=== PATIENT | female | born 1990 | race Caucasian/White ===

== ENCOUNTER → 2017-05-09 | Outpatient (CLI) | payer OTHER ==
[2017-05-09 15:43] LABS: CH 33.7; CHCM 34.1; HDW 2.58; HGB 11.8 gm/dL (11.4-16.0); MCH 33.5 pg (25.0-35.0); MCHC 33.6 g/dL (31.0-37.0); MCV 99.6 fL (80.0-100.0); Mean Platelet Volume 8.1; RBC 3.51 m/uL (3.80-5.40); RDW 13.1 % (11.5-15.5); WBC 10.8 k/uL (3.8-10.6)
== END | disposition home or self-care (01) ==
LOC: LABWHC1 13:56
PROVIDERS: ATTEND Obstetrics & Gynecology
DX: Z34.82 Encounter for supervision of other normal pregnancy, second trimester (principal); Z3A.00 Weeks of gestation of pregnancy not specified
CPT/HCPCS: 36415; 82950; 85027

== ENCOUNTER → 2017-05-19 | Outpatient (CLI) | payer OTHER ==
[2017-05-19 11:33] LABS: Glucose 3 Hour, Gest 81 mg/dL
== END | disposition home or self-care (01) ==
LOC: LABWHC1 07:28
PROVIDERS: ATTEND Obstetrics & Gynecology
DX: O99.810 Abnormal glucose complicating pregnancy (principal); Z3A.00 Weeks of gestation of pregnancy not specified
CPT/HCPCS: 36415; 82951; 82952

== ENCOUNTER 2017-07-10 10:20 | Outpatient (CLI) | payer OTHER ==
[2017-07-10 10:45] VITALS: RESP 18; TEMP 98
--- NOTE | 2017-07-10 12:39 | US ---
EXAMINATION TYPE: US OB limited DATE OF EXAM: 07/10/2017 COMPARISON: NONE CLINICAL HISTORY: Leaking fluid since last night, possible rupture of membranes. EXAM PERFORMED: Transabdominal (TA) GESTATIONAL AGE / DATING Physician Established: (34 weeks/5 days) EDC: 08/16/2017 No growth performed on today?s study per ordering physician SURVEY HENRRY: 11.3 cm Normal Ultrasound evidence of premature rupture of membranes? No PRESENTATION: Vertex HEART RATE: 116 bpm RHYTHM: Normal Results given to L&D at time of exam IMPRESSION: Exam limited. Normal amniotic fluid index. Viable intrauterine .
[2017-07-10] MEDS ORDERED: AMPICILLIN 2,000 MG in SODIUM CHLORIDE 0.9% 100 ML IVPB STA (13:39)
[2017-07-10] MEDS ORDERED: LACTATED RINGERS 1,000 ML IV SCH (13:45)
[2017-07-10 13:55] VITALS: BP 111/69; PULSE 92
[2017-07-10] MEDS ORDERED: BETAMET ACET-BETAMETH SOD PHOS 6 MG/ML VIAL IM SCH (14:00)
--- NOTE | 2017-07-10 14:21 | P.TRANS ---
Providers Expected date of discharge: 07/10/17 Attending physician: Zana Copeland Primary care physician: [facility] Hospital Course: Patient is 27-year-old at 34 and 5 weeks gestation arrived with spontaneous rupture membranes. Patient notes that last night at between 6 and 7 she started having leaking of clear fluid that was continuous. It does not have any relation to her urinating or any other findings. She says that she looked up online and decides and she thought she weighed morning she would wait until morning. She called her office visit earlier this morning and she was advised to come to labor and delivery 1 labor and delivery initially the amnio sure was negative however she continued to have clear leaking of fluid and a speculum exam was done showing pooling in the vagina and therefore repeat amateur was done and this one was positive. She is therefore being transferred to [facility] under the care of Dr. barr maternal medicine specialist. This is due to her maturity and this hospital inability to care for baby before 35 weeks. Risks of transfer discussed with she and her the remaining issue however is that we are unable take care of the baby and therefore a transfer is unfortunately indicated in her case. She has received a dose of Celestone as well as a dose of antibiotics. Past medical history otherwise is unremarkable, past surgical history none, ALLERGIES none, social history unremarkable. Family history is significant for a father with A. fib and a mother with an aortic aneurysm. On physical exam vital signs are stable and afebrile. Heart regular, lungs clear, extremities without pain. Assessment intrauterine at 34 and 5. Plan transfer of care and will allow maternal- medicine to decide future care. Patient Condition at Discharge: Fair Plan - Transfer Summary Transfer Medications: Active Medications Generic Name Dose Route Start Last Admin Trade Name Freq PRN Reason Stop Dose Admin Betamethasone Acet/Betameth SodPhos 12 mg 07/10/17 14:00 Celestone Soluspan IM 07/11/17 14:01 Q24H RUTH Ampicillin Sodium 2,000 mg/ 100 mls @ 200 mls/hr 07/10/17 13:39 Sodium Chloride IVPB 07/10/17 14:08 ONCE STA Lactated Ringer's 1,000 mls @ 20 mls/hr 07/10/17 13:45 07/10/17 13:50 Lactated Ringers IV 20 mls/hr .Q24H RUTH Administration
--- NOTE | 2017-07-11 08:44 | P.MSEPDOC ---
Presenting Problems - Arrival Data Date of Arrival on Unit: 07/10/17 Time of Arrival on Unit: 10:25 Mode of Transport: Portable - Complaint OB-Reason for Admission/Chief Complaint: Rule Out SROM, Pain Comment: leaking clear fluid since 07/09 at 1800, clear, denies intercourse. "Sharp,stabbing" abdominal pain. rating pain 3/10 currently. Medical History - Information : 1 Para: 0 Term: 0 : 0 Abortions: Spontaneous or Elective: 0 Number of Living Children: 0 - Gestational Age Gestational Age by KAMILAH (wks/days): 34 Weeks and 5 Days Review of Systems - Review of Systems Constitutional: No problems Breast: No problems ENT: No problems Cardiovascular: No problems Respiratory: No problems Gastrointestinal: No problems Genitourinary: No problems Musculoskeletal: No problems Neurological: No problems Skin: No problems Vital Signs - Temperature Temperature: 98.0 F Temperature Source: Oral - Pulse Right Sitting Brachial Pulse Rate: 92 Pulse Assessment Method: Automatic Cuff - Respirations Respiratory Rate: 18 Oxygen Delivery Method: Room Air O2 Sat by Pulse Oximetry: 98 - Blood Pressure Right Arm Sitting Blood Pressure: 111/69 Blood Pressure Mean: 83 Blood Pressure Source: Automatic Cuff Medical Screen Scoring (Pre) - Cervical Exam Dilation: Exam Deferred Effacement: Exam Deferred - Uterine Contractions Frequency: N/A Duration: N/A Intensity: N/A - Maternal Vital Signs Maternal Temperature: N/A Maternal Blood Pressure: N/A Signs of Preeclampsia: N/A Maternal Respirations: N/A - Pain Assessment Pain Location and Character: Abdomen Pain Scale Used: Numeric (1 - 10) Pain Intensity: 3 Pain Management Goal: 0 - Maternal Trauma Maternal Trauma: N/A - Assessment Baseline FHR: 120 Heart Rate - NICHD Category: Category I (Normal) = 0 NST: Reactive Position: N/A Station: N/A - Total Score Total Score (Pre): 0 - Level of Risk Level of Risk: Low (0-5) Medical Screen Scoring (Post) - Cervical Exam Dilation: 0 cm = 0 Membranes: ROM more than 12 hrs = 4 - Uterine Contractions Frequency: > 5 minutes apart = 1 - Maternal Vital Signs Maternal Temperature: N/A Maternal Blood Pressure: N/A Signs of Preeclampsia: N/A Maternal Respirations: N/A - Maternal Trauma Maternal Trauma: N/A - Assessment Heart Rate: 115 Heart Rate - NICHD Category: Category I (Normal) = 0 NST: Reactive Position: N/A Station: N/A - Total Score Total Score (Post): 5 - Post Treatment Level of Risk Post Treatment Level of Risk: Low (0-5) Physician Notification (Post) - Physician Notified Physician Notified Date: 07/10/17 Physician Notified Time: 13:30 Physician/Practitioner Notified:: Dr Copeland Spoke With: Dr Copeland New Order Received: Yes - Notification Comment Comment: Transfer to [facility] Disposition - Disposition OB Disposition: Transfer to other dept./facility Transferred to:: [facility] Discharge Date: 07/10/17 Discharge Time: 15:45 I agree with the RN Medical Screening Exam: Yes Risk & Benefit of care provided described in d/c instruction: Yes Diagnosis: LABOR SECOND TRI W DEL THIRD TRI, FETUS 1 (PPROM)
== END 2017-07-10 15:55 | disposition other institution (70) ==
LOC: FBPOP 10:20
PROVIDERS: ATTEND Obstetrics & Gynecology
DX: O60.13X0 Preterm labor second trimester with preterm delivery third trimester, not applicable or unspecified (principal); Z3A.34 34 weeks gestation of pregnancy
CPT/HCPCS: 96360; 96361; 96372; 84112; 76815; G0463; J0702; J0290; 99213

== ENCOUNTER 2019-01-29 23:05 | Emergency (ER) | payer OTHER ==
[2019-01-29 23:11] VITALS: TEMP 98.6
[2019-01-29] MEDS ORDERED: DEXTROSE 5% IN WATER 1,000 ML IV SCH (23:45)
[2019-01-29] MEDS ORDERED: METOCLOPRAMIDE 5 MG/ML 2 ML VIAL IVP STA (23:53)
[2019-01-29] MEDS ORDERED: SODIUM CHLORIDE 0.9% 1,000 ML IV STA (23:53)
[2019-01-29] MEDS ORDERED: diphenhydrAMINE 50 MG/ML 1 ML VIAL IVP STA (23:53)
--- NOTE | 2019-01-29 23:58 | ED ---
Nausea/Vomiting/Diarrhea HPI - General Chief complaint: Nausea/Vomiting/Diarrhea Stated complaint: 6 wks preg, nausea/vomiting Time Seen by Provider: 01/29/19 23:41 Source: patient, family Mode of arrival: ambulatory Limitations: no limitations - History of Present Illness Initial comments: 28 year-old female patient who is 6 weeks presents to the emergency department today for evaluation of nausea and vomiting. She is . Patient's that she's been having nausea with the however today has been vomiting throughout the day and unable to get off the couch. Patient states that she has vomited numerous times. States she is now dry heaving. She denies any constipation or diarrhea with this. Denies any fever or chills. States she is unable to keep down any food or fluids. States she is having some mild lower abdominal cramping denies any abnormal vaginal bleeding or discharge. She is also reporting headache. Denies any blurred or double vision. Denies any numbness or tingling to her extremities. Patient denies any recent rash, shortness breath, chest pain, back pain, numbness, tingling, hematuria, dysuria, urinary urgency, urinary frequency, or any other complaints. - Related Data Home Medications Medication Instructions Recorded Confirmed Pnv No.95/Ferrous Fum/Folic AC 1 each PO DAILY 05/31/17 07/10/17 [ Multivitamin Tablet] Previous Rx's Medication Instructions Recorded Metoclopramide [Reglan] 10 mg PO Q8H PRN #10 tab 01/30/19 Allergies Allergy/AdvReac Type Severity Reaction Status Date / Time No Known Allergies Allergy Verified 01/29/19 23:11 Review of Systems ROS Statement: Those systems with pertinent positive or pertinent negative responses have been documented in the HPI. ROS Other: All systems not noted in ROS Statement are negative. Past Medical History Past Medical History: No Reported History History of Any Multi-Drug Resistant Organisms: None Reported Past Surgical History: Section Past Psychological History: Anxiety Smoking Status: Former smoker Past Alcohol Use History: None Reported Past Drug Use History: None Reported General Exam Limitations: no limitations General appearance: alert, in no apparent distress, other (This is a well- developed, well-nourished adult female patient in no acute distress. Vital signs upon presentation are temperature 98.6F, pulse 76, respirations 20, blood pressure 113/74, pulse ox 99% on room air.) Eye exam: Present: normal appearance, PERRL, EOMI. Absent: scleral icterus, conjunctival injection, periorbital swelling ENT exam: Present: normal exam, normal oropharynx, mucous membranes moist Respiratory exam: Present: normal lung sounds bilaterally. Absent: respiratory distress, wheezes, rales, rhonchi, stridor Cardiovascular Exam: Present: regular rate, normal rhythm, normal heart sounds. Absent: systolic murmur, diastolic murmur, rubs, gallop, clicks GI/Abdominal exam: Present: soft, normal bowel sounds. Absent: distended, tenderness, guarding, rebound, rigid Neurological exam: Present: alert, oriented X3, CN II-XII intact Psychiatric exam: Present: normal affect, normal mood Skin exam: Present: warm, dry, intact, normal color. Absent: rash Course Vital Signs 01/29/19 23:07 Temperature 98.6 F Pulse Rate 76 Respiratory 20 Rate Blood Pressure 113/74 O2 Sat by Pulse 99 Oximetry Medical Decision Making - Medical Decision Making 28 year-old female patient who is 6 weeks presents to the emergency department today for evaluation of vomiting. Patient states she's been vomiting all day. Physical examination revealed a soft nontender abdomen. She denied any vaginal bleeding or discharge. Labs reviewed and were unremarkable. She was given IV fluids here in the emergency department as well as nausea medication. Upon reevaluation she states she is feeling better. She is tolerating oral intake. She'll be discharged home at this time to follow up with the primary care physician and her CATH LAB MANAGER for recheck as soon as possible. Return parameters were discussed in detail. She verbalizes understanding and agrees with this plan. - Lab Data Result diagrams: 01/29/19 23:30 01/29/19 23:30 Lab Results 01/29/19 01/29/19 01/30/19 Range/Units 23:30 23:30 01:56 WBC 10.7 H (3.8-10.6) k/uL RBC 4.34 (3.80-5.40) m/uL Hgb 13.7 (11.4-16.0) gm/dL Hct 39.1 (34.0-46.0) % MCV 90.2 (80.0-100.0) fL MCH 31.5 (25.0-35.0) pg MCHC 34.9 (31.0-37.0) g/dL RDW 13.1 (11.5-15.5) % Plt Count 223 (150-450) k/uL Neutrophils % 65 % Lymphocytes % 29 % Monocytes % 4 % Eosinophils % 1 % Basophils % 0 % Neutrophils # 6.9 (1.3-7.7) k/uL Lymphocytes # 3.1 (1.0-4.8) k/uL Monocytes # 0.4 (0-1.0) k/uL Eosinophils # 0.1 (0-0.7) k/uL Basophils # 0.0 (0-0.2) k/uL Sodium 138 (137-145) mmol/L Potassium 4.0 (3.5-5.1) mmol/L Chloride 103 (98-107) mmol/L Carbon Dioxide 23 (22-30) mmol/L Anion Gap 12 mmol/L BUN 7 (7-17) mg/dL Creatinine 0.57 (0.52-1.04) mg/dL Est GFR (CKD-EPI)AfAm >90 (>60 ml/min/1.73 sqM) Est GFR (CKD-EPI)NonAf >90 (>60 ml/min/1.73 sqM) Glucose 83 (74-99) mg/dL Calcium 9.5 (8.4-10.2) mg/dL Total Bilirubin 0.7 (0.2-1.3) mg/dL AST 21 (14-36) U/L ALT 17 (9-52) U/L Alkaline Phosphatase 63 (38-126) U/L Total Protein 7.6 (6.3-8.2) g/dL Albumin 4.9 (3.5-5.0) g/dL Amylase 80 (30-110) U/L Lipase 60 (23-300) U/L Urine Color Light Yellow Urine Appearance Clear (Clear) Urine pH 6.5 (5.0-8.0) Ur Specific [place] 1.004 (1.001-1.035) Urine Protein Negative (Negative) Urine Glucose (UA) 3+ H (Negative) Urine Ketones 2+ H (Negative) Urine Blood Negative (Negative) Urine Nitrite Negative (Negative) Urine Bilirubin Negative (Negative) Urine Urobilinogen <2.0 (<2.0) mg/dL Ur Leukocyte Esterase Negative (Negative) Disposition Clinical Impression: Vomiting during Disposition: HOME SELF-CARE Condition: Good Instructions (If sedation given, give patient instructions): Acute Nausea and Vomiting (ED) Additional Instructions: Start with clear liquid diet and advance as tolerated. Take medications as directed. Follow-up with your CATH LAB MANAGER and primary care physician for recheck as soon as possible. Return to the emergency department immediately for any new, worsening, or concerning symptoms. Prescriptions: Metoclopramide [Reglan] 10 mg PO Q8H PRN #10 tab PRN Reason: Vomiting Is patient prescribed a controlled substance at d/c from ED?: No Referrals: None,Stated [Primary Care Provider] - 1-2 days Time of Disposition: 02:51
[2019-01-30 00:38] LABS: Basophils % (A) 0 %; Eosinophils # (A) 0.1 k/uL (0-0.7); Eosinophils % (A) 1 %; HCT 39.1 % (34.0-46.0); HGB 13.7 gm/dL (11.4-16.0); Lymphocytes # (A) 3.1 k/uL (1.0-4.8); Lymphocytes % (A) 29 %; MCH 31.5 pg (25.0-35.0); MCHC 34.9 g/dL (31.0-37.0); MCV 90.2 fL (80.0-100.0); Mean Platelet Volume 7.8; Monocytes # (A) 0.4 k/uL (0-1.0); Monocytes % (A) 4 %; Neutrophils # (A) 6.9 k/uL (1.3-7.7); Neutrophils % (A) 65 %; Platelet Count 223 k/uL (150-450); RBC 4.34 m/uL (3.80-5.40); RDW 13.1 % (11.5-15.5); WBC 10.7 k/uL (3.8-10.6)
[2019-01-30 00:47] LABS: ALT 17 U/L (9-52); AST 21 U/L (14-36); African American GFR (CKD) >90 (>60 ml/min/1.73 sqM); Albumin 4.9 g/dL (3.5-5.0); Alkaline Phosphatase 63 U/L (38-126); Amylase 80 U/L (30-110); Anion Gap 12 mmol/L; Blood Urea Nitrogen 7 mg/dL (7-17); Calcium 9.5 mg/dL (8.4-10.2); Carbon Dioxide 23 mmol/L (22-30); Chloride 103 mmol/L (98-107); Glucose 83 mg/dL (74-99); Lipase 60 U/L (23-300); Sodium 138 mmol/L (137-145); Total Bilirubin 0.7 mg/dL (0.2-1.3); Total Protein 7.6 g/dL (6.3-8.2)
[2019-01-30 02:14] LABS: Appearance,Urine Clear (Clear); Bilirubin,Urine Negative (Negative); Blood,Urine Negative (Negative); Color,Urine Light Yellow; Glucose,Urine (UA) 3+ (Negative); Leukocyte Esterase,Urine Negative (Negative); Nitrite,Urine Negative (Negative); PH, Urine 6.5 (5.0-8.0); Protein,Urine Negative (Negative); Specific Gravity,Urine 1.004 (1.001-1.035); Urobilinogen,Urine <2.0 mg/dL (<2.0)
[2019-01-30 02:30] LABS: Ketones,Urine 2+ (Negative)
[2019-01-30 03:40] VITALS: BP 95/64; PULSE 84; RESP 16
== END 2019-01-30 03:41 | disposition home or self-care (01) ==
LOC: EC 23:05
DX: O21.9 Vomiting of pregnancy, unspecified (principal); O26.891 Other specified pregnancy related conditions, first trimester; R10.30 Lower abdominal pain, unspecified; Z87.891 Personal history of nicotine dependence; Z3A.01 Less than 8 weeks gestation of pregnancy
CPT/HCPCS: 36415; 80053; 82150; 83690; 85025; 81003; 99283; 96374; 96375; 96361 ×2; J1200; J2765

== ENCOUNTER → 2019-02-26 | Outpatient (CLI) | payer OTHER ==
--- NOTE | 2019-02-26 11:03 | US ---
EXAMINATION TYPE: Transabdominal DATE OF EXAM: 02/26/2019 9:36 AM COMPARISON: NONE CLINICAL HISTORY: Z36 confrim dates. EXAM PERFORMED: Transabdominal (TA) EXAM MEASUREMENTS: GESTATIONAL AGE / DATING Physician Established: (10 weeks/3 days) EDC: 09/21/2019 Dates by LMP: (10 weeks/3 days) EDC: 09/21/2019 Dates by First Scan: No previous this is first scan Dates by Current Scan for: (10 weeks/4 days) EDC: 09/20/2019 MATERNAL ANATOMY Uterus: 13.0 x 8.7 x 8.0 cm Right Ovary: 3.4 x 1.9 x 2.2 cm Left Ovary: 3.4 x 1.3 x 2.3 cm Post CDS / Adnexa: wnl Presence of free fluid: No Presence of corpus luteal cyst: No Presence of subchorionic bleed: Yes, to the right of the gestational sac measuring 3.7 x 1.6 x 2.1 cm GESTATION / SURVEY CRL: 3.6 cm (10 weeks/4 days) Yolk Sac (normal less than 6mm): 4 mm Heart Rate: 149 bpm Rhythm: Normal IUP: Viable IUP Date of LMP: 12/15/2018 Viable IUP, measurements consistent with dates. Probable subchorionic bleed to the right of the gesta tional sac measuring 3.7 x 1.6 x 2.1 cm IMPRESSION: Single viable intrauterine corresponding to ultrasound age 10 weeks 4 days with estimated d ate of delivery September 20, 2019. Subchorionic hemorrhage suspected.
== END ==
LOC: RADUSWWP 09:06
PROVIDERS: ATTEND Obstetrics & Gynecology
DX: Z36.89 Encounter for other specified antenatal screening (principal)
CPT/HCPCS: 76801

== ENCOUNTER 2019-04-21 12:32 | Emergency (ER) | payer OTHER ==
[2019-04-21 13:08] VITALS: RESP 18; TEMP 98.8
[2019-04-21] MEDS ORDERED: ACETAMINOPHEN TAB 500 MG TAB PO STA (13:31)
--- NOTE | 2019-04-21 14:01 | ED ---
General Adult HPI - General Chief complaint: Back Pain/Injury Stated complaint: Back/Abd Pain-18 wks Time Seen by Provider: 04/21/19 13:13 Source: patient, RN notes reviewed, old records reviewed Mode of arrival: wheelchair Limitations: no limitations - History of Present Illness Initial comments: is a 28-year-old female . She presents today with complaints of back pain. She reports that she threw her back out on Friday. Patients that she's had this happen intermittently since her last . Patient at this time reports no fevers or chills. She does state that she's been having some abdominal cramping with this lately. She denies any vaginal bleeding or fluid loss. Patient states that she had this happened less than she went to a chiropractor. That after she hasn't went to the chiropractor she was induced and the labor. Patient states that she does have placenta previa with this . Is getting frequent ultrasounds. Her DRAMA CRITIC is Dr. Horton. - Related Data Home Medications Medication Instructions Recorded Confirmed Acetaminophen Tab [Tylenol Tab] 500 mg PO Q6HR PRN 04/21/19 04/21/19 Pedi Multivit No.25/Folic Acid 1 tab PO DAILY 04/21/19 04/21/19 [Flintstones Multivit Chew Tab] Previous Rx's Medication Instructions Recorded Cephalexin [Keflex] 500 mg PO Q6HR 3 Days #12 cap 04/21/19 Cyclobenzaprine [Flexeril] 10 mg PO TID #9 tab 04/21/19 Lidocaine [Lidoderm 5% Patch] 1 patch TRANSDERM DAILY #10 patch 04/21/19 Allergies Allergy/AdvReac Type Severity Reaction Status Date / Time No Known Allergies Allergy Verified 04/21/19 13:20 Review of Systems ROS Statement: Those systems with pertinent positive or pertinent negative responses have been documented in the HPI. ROS Other: All systems not noted in ROS Statement are negative. Past Medical History Past Medical History: No Reported History History of Any Multi-Drug Resistant Organisms: None Reported Past Surgical History: Section Past Psychological History: Anxiety Smoking Status: Former smoker Past Alcohol Use History: None Reported Past Drug Use History: None Reported General Exam - General Exam Comments Initial Comments: 28 rolled female. Alert and oriented 3. Patient appears in moderate discomfort. Limitations: no limitations General appearance: alert, in no apparent distress Head exam: Present: atraumatic, normocephalic, normal inspection Eye exam: Present: normal appearance, PERRL, EOMI. Absent: scleral icterus, conjunctival injection, periorbital swelling ENT exam: Present: normal exam, mucous membranes moist Neck exam: Present: normal inspection. Absent: tenderness, meningismus, lymphadenopathy Cardiovascular Exam: Present: regular rate, normal rhythm, normal heart sounds. Absent: systolic murmur, diastolic murmur, rubs, gallop, clicks GI/Abdominal exam: Present: soft, normal bowel sounds. Absent: distended, tenderness, guarding, rebound, rigid Back exam: Present: normal inspection, tenderness (lumbar spine and right paraspinal muscle lumbar spasm. ) Neurological exam: Present: alert, oriented X3, CN II-XII intact Psychiatric exam: Present: normal affect, normal mood Course Vital Signs 04/21/19 04/21/19 13:04 15:39 Temperature 98.8 F Pulse Rate 88 87 Respiratory 18 18 Rate Blood Pressure 100/64 100/51 O2 Sat by Pulse 98 96 Oximetry Medical Decision Making - Medical Decision Making 28 year old female with back pain since friday, and pain is positional. She is 18 weeks . She has no red flag symptoms or saddle anesthesia. Denies any other complaint. Given tylenol, lidoderm patch and starter pack for catagory B flexeril. US shows no fluid loss, and viable IUP. She does have known placenta previa. She at this time will be startedon keflec for asmptomatic bacteruria. Return parameters discussed. - Lab Data Lab Results 04/21/19 Range/Units 14:06 Urine Color Light Yellow Urine Appearance Cloudy H (Clear) Urine pH 6.0 (5.0-8.0) Ur Specific [place] 1.012 (1.001-1.035) Urine Protein Negative (Negative) Urine Glucose (UA) Negative (Negative) Urine Ketones Negative (Negative) Urine Blood Negative (Negative) Urine Nitrite Negative (Negative) Urine Bilirubin Negative (Negative) Urine Urobilinogen <2.0 (<2.0) mg/dL Ur Leukocyte Esterase Trace H (Negative) Urine RBC 2 (0-5) /hpf Urine WBC 2 (0-5) /hpf Ur Squamous Epith Cells 8 H (0-4) /hpf Urine Bacteria Occasional H (None) /hpf Urine Mucus Rare H (None) /hpf - Radiology Data Radiology results: report reviewed US shows viable IUP, appropriate amniotic fluid. Placenta previa noted. Disposition Clinical Impression: Back pain affecting , Asymptomatic bacteriuria during Disposition: HOME SELF-CARE Instructions (If sedation given, give patient instructions): Acute Low Back Pain (ED) Additional Instructions: Alternate between heat and ice to her lower back. Can alternate with the lidocaine patches. Patient should follow-up with primary care doctor. Return to the emergency department if any alarming signs or symptoms occur. Prescriptions: Cyclobenzaprine [Flexeril] 10 mg PO TID #9 tab Cephalexin [Keflex] 500 mg PO Q6HR 3 Days #12 cap Lidocaine [Lidoderm 5% Patch] 1 patch TRANSDERM DAILY #10 patch Is patient prescribed a controlled substance at d/c from ED?: No Referrals: None,Stated [Primary Care Provider] - 1-2 days Time of Disposition: 15:42
[2019-04-21 14:30] LABS: Appearance,Urine Cloudy (Clear); Bacteria,Urine Occasional /hpf; Bilirubin,Urine Negative (Negative); Blood,Urine Negative (Negative); Color,Urine Light Yellow; Glucose,Urine (UA) Negative (Negative); Ketones,Urine Negative (Negative); Leukocyte Esterase,Urine Trace (Negative); Mucus,Urine Rare /hpf; Nitrite,Urine Negative (Negative); Protein,Urine Negative (Negative); RBC,Urine 2 /hpf (0-5); Specific Gravity,Urine 1.012 (1.001-1.035); Squamous Epithelial Cell,Urine 8 /hpf (0-4); Urobilinogen,Urine <2.0 mg/dL (<2.0); WBC,Urine 2 /hpf (0-5)
--- NOTE | 2019-04-21 14:41 | US ---
EXAMINATION TYPE: US OB >= 14 wk fetus DATE OF EXAM: 04/21/2019 COMPARISON: US 02/26/2019 CLINICAL HISTORY: fall, back pain, 18 weeks Pt states back pain with cramping, denies bleeding, has known placental previa TECHNIQUE: Transabdominal (TA) GESTATIONAL AGE / DATING Physician Established: (18 weeks/1 days) EDC: 09/21/2019 Dates by LMP: Unknown Dates by First Scan: (18 weeks/2 days) EDC: 09/20/2019 Dates by Current Scan: (18 weeks/0 days) EDC: 09/22/2019 SURVEY IUP: Single PLACENTA: Anterior PREVIA: Complete HENRRY: 11.1 cm Normal CERVICAL LENGTH (transabdominal: norm > 3.0cm): 3.2 cm BIOMETRY PRESENTATION: Vertex BPD: 4.1 cm 18 weeks / 2 days HC: 15.0 cm 18 weeks / 0 days AC: 13.2 cm 18 weeks / 5 days FL: 2.6 cm 17 weeks / 5 days ESTIMATED WEIGHT IN GRAMS: 229 grams ESTIMATED WEIGHT IN LBS/OZ: 0 lbs. 8 oz. WEIGHT PERCENTAGE BASED ON ESTABLISHED DATES: 49.3% HC/AC: 1.14 Normal FL/AC: 19 Normal HEART RATE: 155 bpm RHYTHM: Normal Single, live IUP/ Confirmed placental previa IMPRESSION: Single live intrauterine with a sonographic age of 18 weeks and 0 days and elvin mated date of delivery of 09/22/2019. Amniotic fluid index is within normal limits. Placenta previa is confirmed. Surveillance is recommended in the second trimester.
[2019-04-21] MEDS ORDERED: LIDOCAINE 5% PATCH TOPICAL STA (15:39)
[2019-04-21 15:40] VITALS: BP 100/51; PULSE 87
[2019-04-21] MEDS ORDERED: CYCLOBENZAPRINE 10MG STARTER 3 TAB BTL PO STA (15:42)
== END 2019-04-21 15:53 | disposition home or self-care (01) ==
LOC: EC 12:32
DX: O26.892 Other specified pregnancy related conditions, second trimester (principal); M54.9 Dorsalgia, unspecified; O99.89 Other specified diseases and conditions complicating pregnancy, childbirth and the puerperium; R82.71 Bacteriuria; O44.02 Complete placenta previa NOS or without hemorrhage, second trimester; Z3A.18 18 weeks gestation of pregnancy; Z87.891 Personal history of nicotine dependence
CPT/HCPCS: 76805; 81001; 99284

== ENCOUNTER 2020-07-24 11:56 | Emergency (ER) | payer OTHER ==
[2020-07-24] MEDS ORDERED: MECLIZINE 12.5 MG TAB PO STA (13:09)
[2020-07-24] MEDS ORDERED: SODIUM CHLORIDE 0.9% 1,000 ML IV ONE (13:10)
--- NOTE | 2020-07-24 13:41 | ED ---
Dizziness HPI - General Source: patient, RN notes reviewed Mode of arrival: ambulatory Limitations: no limitations <Homero Aguilar - Last Filed: 07/24/20 14:20> <Oscar Mercado - Last Filed: 07/24/20 14:50> - General Chief Complaint: Dizziness Stated Complaint: dizziness/headache Time Seen by Provider: 07/24/20 12:59 - History of Present Illness Initial Comments: This is a 30-year-old female presents emergency Department with chief complaint of increasing headaches, blurred vision, dizziness. Patient states it started when she was and states that they just told her it was related she states she developed severe constant headaches which are bilateral. Patient states that she started having acute vision loss. Patient states that she just sees white. He can last a few minutes to several minutes. She states that she even season when she closes her eyes. Patient states that the symptoms persisted after she delivered in August. Patient states that she had multiple palpitations with and she was admitted for high risk and delivered at 34 weeks. Patient states that she is now developed new dizziness which Started at Rest or with Movement. She States That It Feels like She Is Spinning but Also Feels That She Cannot Pass out. Patient Denies Any Associated Focal Weakness of Upper or Lower Extremity Symptoms. She Has No GI Symptoms of Nausea Vomiting Diarrhea Constipation No Lower Extremity Swelling or Discoloration. She Has No History of Nausea, Disorders No Family History. Patient Denies Any Trauma. (Homero Aguilar) - Related Data Home Medications Medication Instructions Recorded Confirmed Ibuprofen [Motrin Ib] 400 mg PO Q8H PRN 07/24/20 07/24/20 Loratadine [Claritin] 10 mg PO DAILY 07/24/20 07/24/20 Previous Rx's Medication Instructions Recorded Meclizine [Antivert] 25 mg PO TID PRN #15 tab 07/24/20 Allergies Allergy/AdvReac Type Severity Reaction Status Date / Time No Known Allergies Allergy Verified 07/24/20 13:18 Review of Systems ROS Other: All systems not noted in ROS Statement are negative. <Homero Aguilar - Last Filed: 07/24/20 14:20> ROS Other: All systems not noted in ROS Statement are negative. <Oscar Mercado - Last Filed: 07/24/20 14:50> ROS Statement: Those systems with pertinent positive or pertinent negative responses have been documented in the HPI. Past Medical History Past Medical History: No Reported History History of Any Multi-Drug Resistant Organisms: None Reported Past Surgical History: Section, Hysterectomy Additional Past Surgical History / Comment(s): Hysterectomy 08/2019 Past Psychological History: Anxiety Past Alcohol Use History: None Reported Past Drug Use History: None Reported <Homero Aguilar - Last Filed: 07/24/20 14:20> General Exam Limitations: no limitations General appearance: alert, in no apparent distress Head exam: Present: atraumatic, normocephalic, normal inspection Eye exam: Present: normal appearance, PERRL, EOMI. Absent: scleral icterus, conjunctival injection, periorbital swelling ENT exam: Present: normal exam, normal oropharynx, mucous membranes moist, TM's normal bilaterally Neck exam: Present: normal inspection, full ROM. Absent: tenderness, meningismus, lymphadenopathy Respiratory exam: Present: normal lung sounds bilaterally. Absent: respiratory distress, wheezes, rales, rhonchi, stridor Cardiovascular Exam: Present: regular rate, normal rhythm, normal heart sounds. Absent: systolic murmur, diastolic murmur, rubs, gallop, clicks Extremities exam: Present: normal inspection, full ROM, normal capillary refill. Absent: tenderness, pedal edema, joint swelling, calf tenderness Neurological exam: Present: alert, oriented X3, CN II-XII intact, normal gait, reflexes normal, other (Finger to nose intact bilaterally without worsening.). Absent: motor sensory deficit Skin exam: Present: warm, dry, intact, normal color. Absent: rash <Homero Aguilar - Last Filed: 07/24/20 14:20> Course <Oscar Mercado - Last Filed: 07/24/20 14:50> Vital Signs 07/24/20 12:12 Temperature 98.4 F Pulse Rate 71 Respiratory 16 Rate Blood Pressure 115/67 O2 Sat by Pulse 99 Oximetry - Reevaluation(s) Reevaluation #1: 07/24/20 14:49 EKG: Sinus bradycardia with sinus arrhythmia, low voltage, rate 51, OR interval 196, QRS duration 92, QTC 398 (Oscar Mercado) Medical Decision Making - Lab Data Result diagrams: 07/24/20 13:23 07/24/20 13:23 <Homero Aguilar - Last Filed: 07/24/20 14:20> - Lab Data Result diagrams: 07/24/20 13:23 07/24/20 13:23 <JasonlucyOscar José Luis - Last Filed: 07/24/20 14:50> - Medical Decision Making CT is unremarkable. Patient has no focal deficits. Patient's been having ongoing headaches and dizziness. Patient will be referred to urology for MRI. Patient was provided symptomatic relief that she wants no medication secondary to breast-feeding. (Homero Aguilar) - Lab Data Lab Results 07/24/20 07/24/20 Range/Units 13:23 13:23 WBC 8.8 (3.8-10.6) k/uL RBC 4.39 (3.80-5.40) m/uL Hgb 13.4 (11.4-16.0) gm/dL Hct 39.2 (34.0-46.0) % MCV 89.5 (80.0-100.0) fL MCH 30.5 (25.0-35.0) pg MCHC 34.1 (31.0-37.0) g/dL RDW 13.1 (11.5-15.5) % Plt Count 239 (150-450) k/uL MPV 7.6 Neutrophils % 59 % Lymphocytes % 34 % Monocytes % 5 % Eosinophils % 1 % Basophils % 1 % Neutrophils # 5.1 (1.3-7.7) k/uL Lymphocytes # 3.0 (1.0-4.8) k/uL Monocytes # 0.4 (0-1.0) k/uL Eosinophils # 0.1 (0-0.7) k/uL Basophils # 0.1 (0-0.2) k/uL Sodium 139 (137-145) mmol/L Potassium 4.1 (3.5-5.1) mmol/L Chloride 107 (98-107) mmol/L Carbon Dioxide 24 (22-30) mmol/L Anion Gap 8 mmol/L BUN 14 (7-17) mg/dL Creatinine 0.58 (0.52-1.04) mg/dL Est GFR (CKD-EPI)AfAm >90 (>60 ml/min/1.73 sqM) Est GFR (CKD-EPI)NonAf >90 (>60 ml/min/1.73 sqM) Glucose 97 (74-99) mg/dL Calcium 9.6 (8.4-10.2) mg/dL Magnesium 1.8 (1.6-2.3) mg/dL Total Bilirubin 0.5 (0.2-1.3) mg/dL AST 28 (14-36) U/L ALT 20 (4-34) U/L Alkaline Phosphatase 82 (38-126) U/L Total Protein 7.0 (6.3-8.2) g/dL Albumin 4.3 (3.5-5.0) g/dL Disposition Is patient prescribed a controlled substance at d/c from ED?: No Time of Disposition: 14:21 <Homero Aguilar - Last Filed: 07/24/20 14:20> <Oscar Mercado - Last Filed: 07/24/20 14:50> Clinical Impression: Frequent headaches, Dizziness Disposition: HOME SELF-CARE Condition: Stable Instructions (If sedation given, give patient instructions): Dizziness (ED) Additional Instructions: Please return to the Emergency Department if symptoms worsen or any other concerns. Prescriptions: Meclizine [Antivert] 25 mg PO TID PRN #15 tab PRN Reason: Vertigo Referrals: Mauricio Wagner DO [STAFF PHYSICIAN] - 1-2 days Leonor Giraldo MD [STAFF PHYSICIAN] - 1-2 days
[2020-07-24 13:50] LABS: Basophils # (A) 0.1 k/uL (0-0.2); Basophils % (A) 1 %; Eosinophils # (A) 0.1 k/uL (0-0.7); Eosinophils % (A) 1 %; HCT 39.2 % (34.0-46.0); HGB 13.4 gm/dL (11.4-16.0); Lymphocytes % (A) 34 %; MCH 30.5 pg (25.0-35.0); MCHC 34.1 g/dL (31.0-37.0); MCV 89.5 fL (80.0-100.0); Mean Platelet Volume 7.6; Monocytes # (A) 0.4 k/uL (0-1.0); Monocytes % (A) 5 %; Neutrophils # (A) 5.1 k/uL (1.3-7.7); Neutrophils % (A) 59 %; Platelet Count 239 k/uL (150-450); RBC 4.39 m/uL (3.80-5.40); RDW 13.1 % (11.5-15.5); WBC 8.8 k/uL (3.8-10.6)
[2020-07-24 14:02] LABS: ALT 20 U/L (4-34); AST 28 U/L (14-36); African American GFR (CKD) >90 (>60 ml/min/1.73 sqM); Albumin 4.3 g/dL (3.5-5.0); Alkaline Phosphatase 82 U/L (38-126); Anion Gap 8 mmol/L; Blood Urea Nitrogen 14 mg/dL (7-17); Calcium 9.6 mg/dL (8.4-10.2); Carbon Dioxide 24 mmol/L (22-30); Chloride 107 mmol/L (98-107); Glucose 97 mg/dL (74-99); Magnesium 1.8 mg/dL (1.6-2.3); Non-African American GFR(CKD) >90 (>60 ml/min/1.73 sqM); Potassium 4.1 mmol/L (3.5-5.1); Sodium 139 mmol/L (137-145); Total Bilirubin 0.5 mg/dL (0.2-1.3)
--- NOTE | 2020-07-24 14:19 | CT ---
EXAMINATION TYPE: CT brain wo con DATE OF EXAM: 07/24/2020 COMPARISON: MRI brain April 21, 2012. HISTORY: Dizziness/Headache CT DLP: 1084.4 mGycm. Automated Exposure Control for Dose Reduction was Utilized. TECHNIQUE: CT scan of the head is performed without contrast. FINDINGS: There is no acute intracranial hemorrhage, mass effect, or midline shift identified. The ventricles and sulci are within normal limits in size. Rosen-white matter differentiation is maintain ed. The globes are intact and the visualized sinuses are clear. IMPRESSION: No acute intracranial hemorrhage, mass effect, or midline shift is seen. Unremarkable st udy. No significant change from prior MRI.
[2020-07-24] MEDS ORDERED: METOCLOPRAMIDE 5 MG/ML 2 ML VIAL IVP STA (14:35)
[2020-07-24] MEDS ORDERED: KETOROLAC 15 MG/ML 1 ML VIAL IVP STA (14:36)
[2020-07-24] MEDS ORDERED: diphenhydrAMINE 50 MG/ML 1 ML VIAL IVP STA (14:36)
[2020-07-24 14:59] VITALS: BP 113/68; PULSE 67; RESP 18; TEMP 98
== END 2020-07-24 15:41 | disposition home or self-care (01) ==
LOC: EC 11:56
DX: R42 Dizziness and giddiness (principal); R51.9 Headache, unspecified; Z79.899 Other long term (current) drug therapy
CPT/HCPCS: 36415; 93005; 80053; 83735; 85025; 70450; 99284; 96374; 96375 ×2; 96361 ×2; J1200; J2765; J1885

== ENCOUNTER 2023-09-27 10:56 | Emergency (ER) | payer OTHER ==
[2023-09-27 11:02] VITALS: TEMP 97.6
--- NOTE | 2023-09-27 12:37 | ED ---
General Adult HPI - General Chief complaint: Recheck/Abnormal Lab/Rx Stated complaint: Abd pain-post op Time Seen by Provider: 09/27/23 12:00 Source: patient, RN notes reviewed Mode of arrival: ambulatory Limitations: no limitations - History of Present Illness Initial comments: 33-year-old female presents to the emergency room for abdominal pain. Patient states about 2 weeks ago on September 15 she had laproscopic pelvic surgery with Dr. Khan where she had a cyst removed, fallopian tubes removed, and endometrial tissue removed. Patient states that since then she has had abdominal and back pain. States that she has bloating in the abdomen. She did have follow-up with Dr. Khan and was cleared. However she states pain is not getting better so presented to this emergency room.Patient has no other complaints at this time including shortness of breath, chest pain, nausea or vomiting, headache, or visual changes. - Related Data Home Medications Medication Instructions Recorded Confirmed Ibuprofen [Motrin Ib] 400 mg PO Q8H PRN 07/24/20 07/24/20 Loratadine [Claritin] 10 mg PO DAILY 07/24/20 07/24/20 Previous Rx's Medication Instructions Recorded Meclizine [Antivert] 25 mg PO TID PRN #15 tab 07/24/20 Allergies Allergy/AdvReac Type Severity Reaction Status Date / Time acetaminophen [From Tylenol] Allergy Vomiting Verified 09/27/23 11:03 Review of Systems ROS Statement: Those systems with pertinent positive or pertinent negative responses have been documented in the HPI. ROS Other: All systems not noted in ROS Statement are negative. Past Medical History Past Medical History: No Reported History History of Any Multi-Drug Resistant Organisms: None Reported Past Surgical History: Section, Hysterectomy Additional Past Surgical History / Comment(s): Hysterectomy 08/2019 Past Psychological History: Anxiety Smoking Status: Never smoker Past Alcohol Use History: None Reported Past Drug Use History: None Reported General Exam Limitations: no limitations General appearance: alert Head exam: Present: atraumatic Eye exam: Present: normal appearance, PERRL, EOMI. Absent: scleral icterus, conjunctival injection ENT exam: Present: normal exam, mucous membranes moist Neck exam: Present: normal inspection, full ROM. Absent: tenderness Respiratory exam: Present: normal lung sounds bilaterally. Absent: respiratory distress Cardiovascular Exam: Present: regular rate, normal rhythm, normal heart sounds GI/Abdominal exam: Present: soft, normal bowel sounds. Absent: distended, tenderness Neurological exam: Present: alert Course Vital Signs 09/27/23 10:59 Temperature 97.6 F Pulse Rate 82 Respiratory 20 Rate Blood Pressure 109/65 O2 Sat by Pulse 100 Oximetry Medical Decision Making - Medical Decision Making Was pt. sent in by a medical professional or institution (STIVEN Joiner, PROFESSOR OF KINESIOLOGY, urgent care, hospital, or care home...) When possible be specific @ -[No] Did you speak to anyone other than the patient for history (EMS, parent, family, police, friend...)? What history was obtained from this source @ -[No] Did you review nursing and triage notes (agree or disagree)? Why? @ -[I reviewed and agree with nursing and triage notes] Were old charts reviewed (outside hosp., previous admission, EMS record, old EKG, old radiological studies, urgent care reports/EKG's, care home records)? Report findings @ -[No old charts were reviewed] Differential Diagnosis (chest pain, altered mental status, abdominal pain women, abdominal pain men, vaginal bleeding, weakness, fever, dyspnea, syncope, headache, dizziness, GI bleed, back pain, seizure, CVA, palpatations, mental health)? @ -Differential Abdominal Pain Women: Appendicitis, Cholecystitis, diverticulosis, ischemic bowel, pancreatitis, hepatitis, UTI, gastroenteritis, AAA, incarcerated hernia, bowel obstruction, constipation, inflammatory bowel, hepatitis, peptic ulcer disease, splenic inf arction, perforated viscus, vulvitis, ovarian torsion, PID, kidney stone, placenta abruption, this is not meant to be an all-inclusive list EKG interpreted by me (3pts min.). @ -[As above] X-rays interpreted by me (1pt min.). @ -[None done] CT interpreted by me (1pt min.). @ -No acute abnormalities, ovarian cyst U/S interpreted by me (1pt. min.). @ -[None done] What testing was considered but not performed or refused? (CT, X-rays, U/S, labs)? Why? @ -[None] What meds were considered but not given or refused? Why? @ -[None] Did you discuss the management of the patient with other professionals (professionals i.e. Dr., PA, PROFESSOR OF KINESIOLOGY, lab, RT, psych nurse, executive secretary social welfare, tester rocket engine, teacher, credit compliance officer, assistant case manager)? Give summary @ -[No] Was smoking cessation discussed for >3mins.? @ -[No] Was critical care preformed (if so, how long)? @ -[No] Were there social determinants of health that impacted care today? How? (Homelessness, low income, unemployed, alcoholism, drug addiction, transportation, low edu. Level, literacy, decrease access to med. care, senior care, rehab)? @ -[No] Was there de-escalation of care discussed even if they declined (Discuss DNR or withdrawal of care, Hospice)? DNR status @ -[No] What co-morbidities impacted this encounter? (DM, HTN, Smoking, COPD, CAD, Cancer, CVA, ARF, Chemo, Hep., AIDS, mental health diagnosis, sleep apnea, morbi d obesity)? @ -[None] Was patient admitted / discharged? Hospital course, mention meds given and route, prescriptions, significant lab abnormalities, going to OR and other pertinent info. @ -Vitals are stable. CBC and CMP are unremarkable. Urinalysis is negative. HCG was not performed given history of hysterectomy. CT abdomen and pelvis shows no evidence of free air or organizing fluid collection. There is left ovarian cyst measuring up to 2.6 cm. At this point patient is stable for discharge home to follow up with Dr. Khan outpatient. Undiagnosed new problem with uncertain prognosis? @ -[No] Drug Therapy requiring intensive monitoring for toxicity (Heparin, Nitro, Ins ulin, Cardizem)? @ -[No] Were any procedures done? @ -[No] Diagnosis/symptom? @ -Postop abdominal pain Acute, or Chronic, or Acute on Chronic? @ -Acute Uncomplicated (without systemic symptoms) or Complicated (systemic symptoms)? @ -Uncomplicated Side effects of treatment? @ -[No] Exacerbation, Progression, or Severe Exacerbation? @ -[No] Poses a threat to life or bodily function? How? (Chest pain, [place], [place], pneumonia, PE, COPD, DKA, ARF, appy, cholecystitis, CVA, Diverticulitis, Homicidal, Suicidal, threat to staff... and all critical care pts) @ -[No] - Lab Data Result diagrams: 09/27/23 12:36 09/27/23 12:36 Lab Results 09/27/23 09/27/23 09/27/23 Range/Units 12:36 12:36 12:36 WBC 8.2 (3.8-10.6) k/uL RBC 4.26 (3.80-5.40) m/uL Hgb 13.9 (11.4-16.0) gm/dL Hct 40.9 (34.0-46.0) % MCV 96.0 (80.0-100.0) fL MCH 32.7 (25.0-35.0) pg MCHC 34.1 (31.0-37.0) g/dL RDW 12.3 (11.5-15.5) % Plt Count 209 (150-450) k/uL MPV 7.7 Neutrophils % 53 % Lymphocytes % 38 % Monocytes % 4 % Eosinophils % 2 % Basophils % 1 % Neutrophils # 4.4 (1.3-7.7) k/uL Lymphocytes # 3.1 (1.0-4.8) k/uL Monocytes # 0.3 (0-1.0) k/uL Eosinophils # 0.2 (0-0.7) k/uL Basophils # 0.1 (0-0.2) k/uL Sodium 140 (137-145) mmol/L Potassium 4.3 (3.5-5.1) mmol/L Chloride 106 (98-107) mmol/L Carbon Dioxide 27 (22-30) mmol/L Anion Gap 7 mmol/L BUN 9 (7-17) mg/dL Creatinine 0.63 (0.52-1.04) mg/dL Est GFR (CKD-EPI)AfAm >90 (>60 ml/min/1.73 sqM) Est GFR (CKD-EPI)NonAf >90 (>60 ml/min/1.73 sqM) Glucose 94 (74-99) mg/dL Calcium 9.5 (8.4-10.2) mg/dL Total Bilirubin 0.4 (0.2-1.3) mg/dL AST 26 (14-36) U/L ALT 28 (4-34) U/L Alkaline Phosphatase 63 (38-126) U/L Total Protein 7.0 (6.3-8.2) g/dL Albumin 4.5 (3.5-5.0) g/dL Amylase 87 (30-110) U/L Lipase 120 (23-300) U/L Urine Color Colorless Urine Appearance Clear (Clear) Urine pH 7.0 (5.0-8.0) Ur Specific [place] 1.003 (1.001-1.035) Urine Protein Negative (Negative) Urine Glucose (UA) Negative (Negative) Urine Ketones Negative (Negative) Urine Blood Negative (Negative) Urine Nitrite Negative (Negative) Urine Bilirubin Negative (Negative) Urine Urobilinogen <2.0 (<2.0) mg/dL Ur Leukocyte Esterase Negative (Negative) Disposition Clinical Impression: Postoperative abdominal pain Disposition: HOME SELF-CARE Condition: Good Instructions (If sedation given, give patient instructions): Abdominal Pain (ED) Additional Instructions: Please follow up with Dr. Khan outpatient. Return to the emergency room for any worsening symptoms. Is patient prescribed a controlled substance at d/c from ED?: No Referrals: Leonor Giraldo MD [Primary Care Provider] - 1-2 days Time of Disposition: 15:37
[2023-09-27] MEDS: SODIUM CHLORIDE 0.9% 1,000 ML IV STA (13:05)
[2023-09-27] MEDS: ONDANSETRON 4 MG/2 ML VIAL IVP STA (13:07)
[2023-09-27] MEDS: MORPHINE SULFATE 4 MG/ML SYRINGE IVP STA (13:08)
[2023-09-27 13:21] LABS: Basophils # (A) 0.1 k/uL (0-0.2); Basophils % (A) 1 %; Eosinophils # (A) 0.2 k/uL (0-0.7); Eosinophils % (A) 2 %; HCT 40.9 % (34.0-46.0); HGB 13.9 gm/dL (11.4-16.0); Lymphocytes # (A) 3.1 k/uL (1.0-4.8); Lymphocytes % (A) 38 %; MCH 32.7 pg (25.0-35.0); MCHC 34.1 g/dL (31.0-37.0); Mean Platelet Volume 7.7; Monocytes # (A) 0.3 k/uL (0-1.0); Monocytes % (A) 4 %; Neutrophils # (A) 4.4 k/uL (1.3-7.7); Neutrophils % (A) 53 %; Platelet Count 209 k/uL (150-450); RBC 4.26 m/uL (3.80-5.40); RDW 12.3 % (11.5-15.5); WBC 8.2 k/uL (3.8-10.6)
[2023-09-27 13:27] LABS: Appearance,Urine Clear (Clear); Bilirubin,Urine Negative (Negative); Blood,Urine Negative (Negative); Color,Urine Colorless; Glucose,Urine (UA) Negative (Negative); Ketones,Urine Negative (Negative); Leukocyte Esterase,Urine Negative (Negative); Nitrite,Urine Negative (Negative); Protein,Urine Negative (Negative); Specific Gravity,Urine 1.003 (1.001-1.035); Urobilinogen,Urine <2.0 mg/dL (<2.0)
[2023-09-27 13:56] LABS: Potassium 4.3 mmol/L (3.5-5.1)
[2023-09-27 13:57] LABS: ALT 28 U/L (4-34); AST 26 U/L (14-36); African American GFR (CKD) >90 (>60 ml/min/1.73 sqM); Albumin 4.5 g/dL (3.5-5.0); Alkaline Phosphatase 63 U/L (38-126); Amylase 87 U/L (30-110); Anion Gap 7 mmol/L; Blood Urea Nitrogen 9 mg/dL (7-17); Calcium 9.5 mg/dL (8.4-10.2); Carbon Dioxide 27 mmol/L (22-30); Chloride 106 mmol/L (98-107); Glucose 94 mg/dL (74-99); Lipase 120 U/L (23-300); Non-African American GFR(CKD) >90 (>60 ml/min/1.73 sqM); Sodium 140 mmol/L (137-145); Total Bilirubin 0.4 mg/dL (0.2-1.3)
--- NOTE | 2023-09-27 15:01 | CT ---
EXAMINATION TYPE: CT abdomen pelvis w con CT DLP: 644.3. mGycm, Automated exposure control for dose reduction was used. DATE OF EXAM: 09/27/2023 1:36 PM COMPARISON: None. CLINICAL INDICATION:Female, 33 years old with history of abdominal pain, laparoscopic pelvic surgery 2/; abd pain TECHNIQUE: Axial CT abdomen pelvis w con;Sagittal and coronal reformats were created on a separate w orkstation. Contrast used:100 mL of Isovue 300 with IV Contrast, (none if empty) Oral contrast used: without Oral Contrast (none if empty) FINDINGS: LOWER CHEST: Unremarkable ABDOMEN LIVER: Unremarkable GALLBLADDER AND BILE DUCTS: Unremarkable. PANCREAS: Unremarkable. SPLEEN: Unremarkable. ADRENAL GLANDS: Unremarkable. KIDNEYS AND URETERS: No evidence of hydronephrosis or renal calculus. The ureters are unremarkable. PELVIS BLADDER: Unremarkable REPRODUCTIVE: Left ovarian cyst measuring up to 3.6 cm. ABDOMEN & PELVIS STOMACH AND BOWEL: No evidence of bowel obstruction. PERITONEUM/RETROPERITONEUM: No evidence of pneumoperitoneum or free fluid. VASCULATURE: No evidence of aortic aneurysm. MUSCULOSKELETAL: No acute osseous abnormalities LYMPH NODES: No gross evidence for lymphadenopathy. SOFT TISSUE/ABDOMINAL WALL: Postoperative scattered surgical changes anterior abdominal wall bilatera lly. IMPRESSION: No evidence of free air or organizing fluid collection within the abdomen or pelvis. There is a left ovarian cyst measuring up to 2.6 cm.
[2023-09-27 16:04] VITALS: BP 122/75; PULSE 67; RESP 16
== END 2023-09-27 15:57 | disposition home or self-care (01) ==
LOC: EC 10:56
DX: G89.18 Other acute postprocedural pain (principal); N83.202 Unspecified ovarian cyst, left side; Z88.6 Allergy status to analgesic agent; Z90.710 Acquired absence of both cervix and uterus; Z90.79 Acquired absence of other genital organ(s)
CPT/HCPCS: 99284; 96374; 96375; 96361; 36415; 80053; 82150; 83690; 85025; 81003; 74177; J2270; J2405; Q9967

== ENCOUNTER → 2024-02-10 | Outpatient (CLI) | payer OTHER ==
--- NOTE | 2024-02-10 16:17 | XR ---
EXAMINATION TYPE: XR knee complete RT DATE OF EXAM: 02/10/2024 4:09 PM CLINICAL INDICATION:Female, 33 years old with history of [id number] RT KNEE PAIN,RT HIP PAIN; COMPARISON: None. TECHNIQUE: XR knee complete RT; examined in Frontal, lateral and oblique projections. FINDINGS: No evidence of any acute osseous pathology, soft tissue swelling, or joint effusion is no ozzy. Tricompartmental osteophyte formation involving the femoral condyles, tibial plateau and patella . Mild joint space narrowing. IMPRESSION: 1. No acute osseous pathology. 2. Mild tricompartmental osteoarthritic changes.
--- NOTE | 2024-02-10 16:20 | XR ---
EXAMINATION TYPE: XR Hip Complete RT DATE OF EXAM: 02/10/2024 4:09 PM CLINICAL INDICATION:Female, 33 years old with history of [id number] RT KNEE PAIN,RT HIP PAIN; COMPARISON: None. TECHNIQUE: XR Hip Complete RT; hip was examined in the frontal and lateral projections and a AP pelvi s. FINDINGS: No evidence for acute process, joint dislocation or significant soft tissue swelling. Osteo phyte formation of the superior acetabulum of the hip. There is mild joint space narrowing. IMPRESSION: 1. No evidence for acute process. 2. Mild hip osteoarthrosis.
== END | disposition home or self-care (01) ==
LOC: RADXRYALE 15:51
PROVIDERS: ATTEND Internal Medicine
DX: M16.11 Unilateral primary osteoarthritis, right hip (principal); M17.11 Unilateral primary osteoarthritis, right knee
CPT/HCPCS: 73502

== ENCOUNTER 2024-08-28 12:35 | Emergency (ER) | payer OTHER ==
[2024-08-28 12:40] VITALS: TEMP 98.9
--- NOTE | 2024-08-28 12:55 | ED ---
Abdominal Pain HPI - General Chief Complaint: Abdominal Pain Stated Complaint: Lower back pain/abd pain Time Seen by Provider: 08/28/24 12:45 Source: patient, RN notes reviewed Mode of arrival: ambulatory Limitations: no limitations - History of Present Illness Initial Comments: This is a 34-year-old female who presents to the emergency department for ab dominal pain. Patient reports right lower quadrant pain radiating to the right lower back for the last 3 to 4 days. States that last night she threw up and she has been running fevers. She does have a history of ovarian cysts and is unsure if it may be related to that or something else. She has had a hysterectomy but still has her ovaries. Additionally, she was told that she has a mass in her back, and has an appointment on Friday to have further investigation as to what this is. Denies any diarrhea or constipation. MD Complaint: abdominal pain - Related Data Home Medications Medication Instructions Recorded Confirmed Ibuprofen [Motrin Ib] 400 mg PO Q8H PRN 07/24/20 07/24/20 Loratadine [Claritin] 10 mg PO DAILY 07/24/20 07/24/20 Previous Rx's Medication Instructions Recorded Meclizine [Antivert] 25 mg PO TID PRN #15 tab 07/24/20 HYDROcodone/APAP 7.5-325MG [Clearwater 1 tab PO Q6HR PRN 3 Days #12 tab 08/28/24 7.5-325] Ketorolac [Toradol] 10 mg PO Q6HR PRN #15 tab 08/28/24 Ondansetron Odt [Zofran Odt] 4 mg PO Q8HR PRN #20 tab 08/28/24 Promethazine [Phenergan] 25 mg PO Q6HR PRN #20 tablet 08/28/24 Allergies Allergy/AdvReac Type Severity Reaction Status Date / Time acetaminophen [From Tylenol] Allergy Vomiting Verified 09/27/23 11:03 Review of Systems ROS Statement: Those systems with pertinent positive or pertinent negative responses have been documented in the HPI. ROS Other: All systems not noted in ROS Statement are negative. Past Medical History Past Medical History: Osteoarthritis (OA) Additional Past Medical History / Comment(s): ovarian cyst History of Any Multi-Drug Resistant Organisms: None Reported Past Surgical History: Section, Hysterectomy Additional Past Surgical History / Comment(s): Hysterectomy 08/2019 Past Psychological History: Anxiety Smoking Status: Never smoker Past Alcohol Use History: None Reported Past Drug Use History: None Reported General Exam Limitations: no limitations General appearance: alert, in distress Head exam: Present: atraumatic, normocephalic, normal inspection Respiratory exam: Present: normal lung sounds bilaterally. Absent: respiratory distress, wheezes, rales, rhonchi, stridor Cardiovascular Exam: Present: regular rate, normal rhythm, normal heart sounds. Absent: systolic murmur, diastolic murmur, rubs, gallop, clicks GI/Abdominal exam: Present: soft, tenderness (RLQ), normal bowel sounds. Absent: distended Back exam: Present: CVA tenderness (R) Neurological exam: Present: alert, oriented X3, CN II-XII intact Psychiatric exam: Present: normal affect, normal mood Skin exam: Present: warm, dry, intact, normal color. Absent: rash Course Vital Signs 08/28/24 08/28/24 12:36 17:29 Temperature 98.9 F Pulse Rate 98 51 L Respiratory 20 18 Rate Blood Pressure 112/76 102/62 O2 Sat by Pulse 98 100 Oximetry Medical Decision Making - Medical Decision Making This is a 34-year-old female who presents to the emergency department for abdominal pain. Was pt. sent in by a medical professional or institution? @ -No Did you speak to anyone other than the patient for history? @ -No Did you review nursing and triage notes? @ -Yes, and I agree, it is accurate with regards to the patient's symptoms. Were old charts reviewed? @ -No Differential Diagnosis? @ -Differential Abdominal Pain Women: Appendicitis, Cholecystitis, diverticulosis, ischemic bowel, pancreatitis, hepatitis, UTI, gastroenteritis, AAA, incarcerated hernia, bowel obstruction, constipation, inflammatory bowel, hepatitis, peptic ulcer disease, splenic infarction, perforated viscus, vulvitis, ovarian torsion, PID, kidney stone, placenta abruption, this is not meant to be an all-inclusive list EKG interpreted by me (3pts min.)? @ -Not obtained X-rays interpreted by me (1pt min.)? @ -Not obtained CT interpreted by me (1pt min.)? @ -CT scan of the abdomen and pelvis obtained. My interpretation identifies no evidence of bowel wall thickening or free air. U/S interpreted by me (1pt. min.)? @ -Transvaginal ultrasound obtained. My interpretation identifies no evidence of an ovarian torsion. What testing was considered but not performed? (CT, X-rays, U/S, labs)? Why? @ -None What meds were considered but not given? Why? @ -None Did you discuss the management of the patient with other professionals? @ -No Did you reconcile home meds? @ -No Was smoking cessation discussed for >3mins.? @ -No Was critical care preformed (if so, how long)? @ -No Were there social determinants of health that impacted care today? How? (Homelessness, low income, unemployed, alcoholism, drug addiction, transportation, low edu. Level, literacy, decrease access to med. care, halfway, rehab)? @ -No Was there de-escalation of care discussed even if they declined? (Discuss DNR or withdrawal of care, Hospice)? @ -No What co-morbidities impacted this encounter? (DM, HTN, Smoking, COPD, CAD, Cancer, CVA, Hep., AIDS, mental health diagnosis, sleep apnea, morbid obesity)? @ -Ovarian cysts Was patient admitted / discharged? @ -Discharged. Lab work unremarkable. CT scan of the abdomen and pelvis reveals no acute process. Given her history of ovarian cysts and location of her pain, transvaginal ultrasound was then obtained for further evaluation. This revealed a suspected right ovarian hemorrhagic cyst as well as a questionable solid left ovarian lesion. Findings reviewed with the patient. Pain may be related to the right-sided hemorrhagic cyst which, if leaking, could be causing a lot of irritation from the blood. Symptoms were managed in the emergency department, however she did require a lot of pain and nausea medication. Prescriptions for Toradol, Clear[place], Zofran, and Phenergan provided. Advised follow-up with her PCP and [facility], especially for a repeat ultrasound in 3 months regarding the left-sided lesion. Patient discharged home in stable condition. Case discussed with ED attending Dr. Hoffman. Return precautions reviewed in depth, the patient is instructed to return to the emergency department with any new, worsening, or concerning symptoms. Patient verbalized understanding. Undiagnosed new problem with uncertain prognosis? @ -None Drug Therapy requiring intensive monitoring for toxicity (Heparin, Nitro, Insulin, Cardizem)? @ -None Were any procedures done? @ -None Diagnosis/symptom? @ -Right-sided hemorrhagic cyst ovarian cyst, abdominal pain, back pain, nausea and vomiting Acute, or Chronic, or Acute on Chronic? @ -Acute Uncomplicated (without systemic symptoms) or Complicated (systemic symptoms)? @ -Uncomplicated Side effects of treatment? @ -None Exacerbation, Progression, or Severe Exacerbation] @ -Not applicable Poses a threat to life or bodily function? @ -No - Lab Data Result diagrams: 08/28/24 13:05 08/28/24 13:05 Lab Results 08/28/24 08/28/24 08/28/24 Range/Units 13:05 13:05 13:05 WBC 5.7 (3.8-10.6) k/uL RBC 4.31 (3.80-5.40) m/uL Hgb 13.7 (11.4-16.0) gm/dL Hct 40.6 (34.0-46.0) % MCV 94.1 (80.0-100.0) fL MCH 31.8 (25.0-35.0) pg MCHC 33.8 (31.0-37.0) g/dL RDW 11.9 (11.5-15.5) % Plt Count 160 (150-450) k/uL MPV 7.6 Neutrophils % 76 % Lymphocytes % 16 % Monocytes % 6 % Eosinophils % 1 % Basophils % 1 % Neutrophils # 4.4 (1.3-7.7) k/uL Lymphocytes # 0.9 L (1.0-4.8) k/uL Monocytes # 0.3 (0-1.0) k/uL Eosinophils # 0.1 (0-0.7) k/uL Basophils # 0.0 (0-0.2) k/uL Sodium 135 L (137-145) mmol/L Potassium 3.9 (3.5-5.1) mmol/L Chloride 105 (98-107) mmol/L Carbon Dioxide 19 L (22-30) mmol/L Anion Gap 11 mmol/L BUN 11 (7-17) mg/dL Creatinine 0.66 (0.52-1.04) mg/dL Est GFR (CKD-EPI)AfAm >90 (>60 ml/min/1.73 sqM) Est GFR (CKD-EPI)NonAf >90 (>60 ml/min/1.73 sqM) Glucose 110 H (74-99) mg/dL Plasma Lactic Acid Alec 0.8 (0.7-2.0) mmol/L Calcium 9.2 (8.4-10.2) mg/dL Total Bilirubin 0.5 (0.2-1.3) mg/dL AST 24 (14-36) U/L ALT 14 (4-34) U/L Alkaline Phosphatase 49 (38-126) U/L Total Protein 6.7 (6.3-8.2) g/dL Albumin 4.2 (3.5-5.0) g/dL Amylase 66 (30-110) U/L Lipase 70 (23-300) U/L Urine Color Urine Appearance (Clear) Urine pH (5.0-8.0) Ur Specific Brewster (1.001-1.035) Urine Protein (Negative) Urine Glucose (UA) (Negative) Urine Ketones (Negative) Urine Blood (Negative) Urine Nitrite (Negative) Urine Bilirubin (Negative) Urine Urobilinogen (<2.0) mg/dL Ur Leukocyte Esterase (Negative) 08/28/24 Range/Units 15:15 WBC (3.8-10.6) k/uL RBC (3.80-5.40) m/uL Hgb (11.4-16.0) gm/dL Hct (34.0-46.0) % MCV (80.0-100.0) fL MCH (25.0-35.0) pg MCHC (31.0-37.0) g/dL RDW (11.5-15.5) % Plt Count (150-450) k/uL MPV Neutrophils % % Lymphocytes % % Monocytes % % Eosinophils % % Basophils % % Neutrophils # (1.3-7.7) k/uL Lymphocytes # (1.0-4.8) k/uL Monocytes # (0-1.0) k/uL Eosinophils # (0-0.7) k/uL Basophils # (0-0.2) k/uL Sodium (137-145) mmol/L Potassium (3.5-5.1) mmol/L Chloride (98-107) mmol/L Carbon Dioxide (22-30) mmol/L Anion Gap mmol/L BUN (7-17) mg/dL Creatinine (0.52-1.04) mg/dL Est GFR (CKD-EPI)AfAm (>60 ml/min/1.73 sqM) Est GFR (CKD-EPI)NonAf (>60 ml/min/1.73 sqM) Glucose (74-99) mg/dL Plasma Lactic Acid Alec (0.7-2.0) mmol/L Calcium (8.4-10.2) mg/dL Total Bilirubin (0.2-1.3) mg/dL AST (14-36) U/L ALT (4-34) U/L Alkaline Phosphatase (38-126) U/L Total Protein (6.3-8.2) g/dL Albumin (3.5-5.0) g/dL Amylase (30-110) U/L Lipase (23-300) U/L Urine Color Light Yellow Urine Appearance Clear (Clear) Urine pH 6.0 (5.0-8.0) Ur Specific Brewster >1.050 H (1.001-1.035) Urine Protein Trace H (Negative) Urine Glucose (UA) Negative (Negative) Urine Ketones 1+ H (Negative) Urine Blood Negative (Negative) Urine Nitrite Negative (Negative) Urine Bilirubin Negative (Negative) Urine Urobilinogen <2.0 (<2.0) mg/dL Ur Leukocyte Esterase Negative (Negative) - Radiology Data Radiology results: report reviewed, image reviewed Disposition Clinical Impression: Hemorrhagic cyst of right ovary, Abdominal pain, Back pain, Nausea and vomiting Disposition: HOME SELF-CARE Instructions (If sedation given, give patient instructions): Ovarian Cyst (ED), Ruptured Ovarian Cyst (ED) Additional Instructions: Return to the emergency department with any new, worsening, or concerning symptoms. Take the Toradol with Tylenol as needed for pain relief. If you choose to take the Toradol, do not take any other anti-inflammatories such as ibuprofen, take one or the other. Take the Clear[place] sparingly when your pain is the most severe. You can take the Zofran up to every 8 hours as needed for nausea and vomiting and the Phenergan up to every 6 hours as needed for nausea and vomiting. Follow-up with your primary care provider and [facility]. Prescriptions: HYDROcodone/APAP 7.5-325MG [[place] 7.5-325] 1 tab PO Q6HR PRN 3 Days #12 tab PRN Reason: Pain Promethazine [Phenergan] 25 mg PO Q6HR PRN #20 tablet PRN Reason: Nausea And Vomiting Ketorolac [Toradol] 10 mg PO Q6HR PRN #15 tab PRN Reason: Pain Ondansetron Odt [Zofran Odt] 4 mg PO Q8HR PRN #20 tab PRN Reason: Nausea And Vomiting Is patient prescribed a controlled substance at d/c from ED?: Yes When asked, does pt state using other controlled substances?: Yes If prescribed controlled substance>3 days was MAPS reviewed?: Prescribed <3 Days Referrals: Leonor Giraldo MD [Primary Care Provider] - 1-2 days Time of Disposition: 17:12
[2024-08-28] MEDS: HYDROmorphone 1 MG/ML 1 ML SYRINGE IVP STA ×2 (13:08→14:38)
[2024-08-28] MEDS: SODIUM CHLORIDE 0.9% 1,000 ML IV STA ×2 (13:08→16:24)
[2024-08-28] MEDS: ONDANSETRON 4 MG/2 ML VIAL IVP STA (13:08)
[2024-08-28] MEDS: KETOROLAC 15 MG/ML 1 ML VIAL IVP STA ×2 (13:08→16:24)
[2024-08-28 13:30] LABS: Basophils % (A) 1 %; Eosinophils # (A) 0.1 k/uL (0-0.7); Eosinophils % (A) 1 %; HCT 40.6 % (34.0-46.0); HGB 13.7 gm/dL (11.4-16.0); Lymphocytes # (A) 0.9 k/uL (1.0-4.8); Lymphocytes % (A) 16 %; MCH 31.8 pg (25.0-35.0); MCHC 33.8 g/dL (31.0-37.0); MCV 94.1 fL (80.0-100.0); Mean Platelet Volume 7.6; Monocytes # (A) 0.3 k/uL (0-1.0); Monocytes % (A) 6 %; Neutrophils # (A) 4.4 k/uL (1.3-7.7); Neutrophils % (A) 76 %; Platelet Count 160 k/uL (150-450); RBC 4.31 m/uL (3.80-5.40); RDW 11.9 % (11.5-15.5); WBC 5.7 k/uL (3.8-10.6)
[2024-08-28 13:56] LABS: ALT 14 U/L (4-34); African American GFR (CKD) >90 (>60 ml/min/1.73 sqM); Albumin 4.2 g/dL (3.5-5.0); Amylase 66 U/L (30-110); Anion Gap 11 mmol/L; Blood Urea Nitrogen 11 mg/dL (7-17); Calcium 9.2 mg/dL (8.4-10.2); Carbon Dioxide 19 mmol/L (22-30); Chloride 105 mmol/L (98-107); Glucose 110 mg/dL (74-99); Lipase 70 U/L (23-300); Non-African American GFR(CKD) >90 (>60 ml/min/1.73 sqM); Sodium 135 mmol/L (137-145); Total Bilirubin 0.5 mg/dL (0.2-1.3); Total Protein 6.7 g/dL (6.3-8.2)
[2024-08-28 14:12] LABS: AST 24 U/L (14-36); Alkaline Phosphatase 49 U/L (38-126); Potassium 3.9 mmol/L (3.5-5.1)
[2024-08-28] MEDS: METOCLOPRAMIDE 5 MG/ML 2 ML VIAL IVP STA (14:39)
--- NOTE | 2024-08-28 14:55 | CT ---
EXAMINATION TYPE: CT abdomen pelvis w con DATE OF EXAM: 08/28/2024 2:25 PM COMPARISON: 09/27/2023 CLINICAL INDICATION: Female, 34 years old with history of RLQ abdominal pain; RLQ Abdominal pain. TECHNIQUE: Axial CT abdomen pelvis w con;Sagittal and coronal reformats were created on a separate w orkstation. Contrast used:100 ml mL of Isovue 300 with IV Contrast, (none if empty) Oral contrast used: without Oral Contrast (none if empty) CT DLP: 664.4 mGycm, Automated exposure control for dose reduction was used. FINDINGS: LOWER CHEST: Unremarkable ABDOMEN LIVER: Unremarkable GALLBLADDER AND BILE DUCTS: Unremarkable. PANCREAS: Unremarkable. SPLEEN: Unremarkable. ADRENAL GLANDS: Unremarkable. KIDNEYS AND URETERS: No evidence of hydronephrosis or renal calculus. The ureters are unremarkable. PELVIS BLADDER: No evidence for wall thickening or mass given limitations of exam. REPRODUCTIVE: Unremarkable. ABDOMEN & PELVIS STOMACH AND BOWEL: No evidence of bowel obstruction. The appendix is visualized near midline is withi n normal limits. PERITONEUM/RETROPERITONEUM: No evidence of pneumoperitoneum or free fluid. VASCULATURE: No evidence of aortic aneurysm. MUSCULOSKELETAL: No acute osseous abnormalities LYMPH NODES: No gross evidence for lymphadenopathy. SOFT TISSUE/ABDOMINAL WALL: Fat-containing umbilical hernia. IMPRESSION: No evidence for acute abdominal process to explain the patient's right lower quadrant pain. The appen prashant is visualized and within normal limits. No evidence for obstructive uropathy or calculus. [facility], , 08/28/2024 2:52 PM
[2024-08-28 15:44] LABS: Appearance,Urine Clear (Clear); Bilirubin,Urine Negative (Negative); Blood,Urine Negative (Negative); Color,Urine Light Yellow; Glucose,Urine (UA) Negative (Negative); Ketones,Urine 1+ (Negative); Leukocyte Esterase,Urine Negative (Negative); Nitrite,Urine Negative (Negative); Protein,Urine Trace (Negative); Specific Gravity,Urine >1.050 (1.001-1.035); Urobilinogen,Urine <2.0 mg/dL (<2.0)
--- NOTE | 2024-08-28 16:11 | US ---
EXAMINATION TYPE: US transvaginal DATE OF EXAM: 08/28/2024 COMPARISON: Same day CT CLINICAL INDICATION: Female, 34 years old with history of Right sided pelvic pain; RLQ pelvic pain TECHNIQUE: Transvaginal (TV). Transvaginal grayscale sonographic images of the pelvis were acquired. Doppler imaging: Color Doppler Images were obtained. Spectral doppler images were obtained. FINDINGS: Date of LMP: 2019- pt had partial hysterectomy EXAM MEASUREMENTS: Right Ovary: 4.1 x 3.5 x 2.7 cm Left Ovary: 4.0 x 4.0 x 2.5 cm 1. Uterus: Surgically absent 2. Endometrium: Surgically absent 3. Right Ovary: Possible small resolving hemorrhagic follicle= 2.0 x 1.5 x 1.6 cm 4. Left Ovary: Solid lesion= 2.9 x 2.4 x 2.8 cm Spectral, color and waveform doppler imaging shows good arterial and venous flow within the ovaries ; there is no evidence for ovarian torsion. 5. Bilateral Adnexa: wnl 6. Posterior cul-de-sac: wnl IMPRESSION: 1. Right ovarian suspected hemorrhagic cyst. 2. Appropriate arterial and venous spectral waveforms to the ovaries. 3. Questionable solid left ovarian lesion. Short-term follow-up is recommended in 3 months. [facility], , 08/28/2024 4:08 PM
[2024-08-28] MEDS: PROCHLORPERAZINE INJ 10 MG/2 ML VIAL IVP STA (16:25)
[2024-08-28] MEDS: ONDANSETRON 4 MG ODT STARTER PACK 2 TAB BTL PO STA (17:27)
[2024-08-28] MEDS: traMADol 50 MG STARTER PACK 3 TAB BTL PO STA (17:28)
[2024-08-28 17:31] VITALS: BP 102/62; PULSE 51; RESP 18
== END 2024-08-28 17:31 | disposition home or self-care (01) ==
LOC: EC 12:35
DX: N83.201 Unspecified ovarian cyst, right side (principal); Z88.6 Allergy status to analgesic agent
CPT/HCPCS: 36415; 80053; 82150; 83605; 83690; 85025; 81003; 93975; 76830; 74177; 99284; 96374; 96375 ×4; 96376 ×2; 96361 ×2; J0780; J2765; J2405; J1171; J1885; S0119; Q9967